=== PATIENT | female | born 1935 | race Caucasian/White ===

== ENCOUNTER 2021-02-16 12:28 | Observation (INO) ==
[2021-02-16] MEDS ORDERED: Acetaminophen 325 MG TABLET PO PRN (14:56)
[2021-02-16] MEDS ORDERED: Ondansetron 4 MG/2 ML VIAL IVP PRN (14:56)
[2021-02-16] MEDS ORDERED: Naloxone 0.4 MG/ML INJ IVP PRN (14:56)
[2021-02-16] MEDS ORDERED: *HR* HYDROcodone/Acet 5/325 mg TABLET PO PRN (14:59)
[2021-02-16] MEDS ORDERED: MOM Conc 10 ML UD.LIQ PO PRN (14:59)
[2021-02-16] MEDS ORDERED: 0.9 % Sodium Chloride 500 ML IVC ONE (15:20)
[2021-02-16 15:37] LABS: Hematocrit 38.3 % (35.3-44.9); Hemoglobin 12.5 g/dL (11.5-15.4); Mean Corpuscular HGB Conc 32.6 g/dL (31.6-35.5); Mean Corpuscular Hemoglobin 30.6 pg (28.0-33.3); Mean Corpuscular Volume 93.9 fL (83.0-100.0); Mean Platelet Volume 9.4 fL (9.4-12.4); Platelet Count 187 K/mcL (140-400); Red Blood Count 4.08 M/mcL (3.82-4.97); Red Cell Distribution Width 13.3 % (11.5-14.5); White Blood Count 7.7 K/mcL (4.3-11.1)
[2021-02-16] MEDS ORDERED: 0.9 % Sodium Chloride 500 ML ONE (15:46)
[2021-02-16 15:52] LABS: BUN/Creatinine Ratio 26 (6-26); Blood Urea Nitrogen 27 mg/dL (8-23); Calcium 8.5 mg/dL (8.6-10.3); Carbon Dioxide 27 mEq/L (23-29); Chloride 104 mEq/L (98-107); Glucose 95 mg/dL (70-105); Osmolality,Calculated 291 (280-300); Sodium 138 mEq/L (136-145); eGFR For African Americans > 60 (> 60); eGFR For Non-African Americans 52 (> 60)
[2021-02-16] MEDS: Carbidopa/Levodopa [Carbidopa-Levo Er 25-100 Tab] PO SCH ×2 (17:08→20:50)
[2021-02-16] MEDS: 0.9 % Sodium Chloride 1,000 ML IVC SCH (17:08)
[2021-02-16] MEDS: Gabapentin 100 MG CAPSULE PO SCH ×2 (17:08→20:49)
[2021-02-16] MEDS: Apixaban 5 MG TABLET PO SCH (20:49)
[2021-02-16] MEDS: QUEtiapine Fumarate 25 MG TABLET PO SCH (20:49)
[2021-02-16] MEDS: rOPINIRole 1 MG TABLET PO SCH (20:49)
[2021-02-17] MEDS: 0.9 % Sodium Chloride 1,000 ML IVC SCH ×2 (02:58→11:18)
[2021-02-17 06:09] LABS: Hematocrit 36.4 % (35.3-44.9); Hemoglobin 11.4 g/dL (11.5-15.4); Mean Corpuscular HGB Conc 31.3 g/dL (31.6-35.5); Mean Corpuscular Hemoglobin 30.2 pg (28.0-33.3); Mean Corpuscular Volume 96.3 fL (83.0-100.0); Mean Platelet Volume 9.9 fL (9.4-12.4); Platelet Count 177 K/mcL (140-400); Red Blood Count 3.78 M/mcL (3.82-4.97); Red Cell Distribution Width 13.5 % (11.5-14.5); White Blood Count 7.6 K/mcL (4.3-11.1)
[2021-02-17 06:39] LABS: BUN/Creatinine Ratio 25 (6-26); Blood Urea Nitrogen 24 mg/dL (8-23); Calcium 8.1 mg/dL (8.6-10.3); Carbon Dioxide 30 mEq/L (23-29); Chloride 108 mEq/L (98-107); Chol/HDL Ratio 4.6 (0-4.9); Cholesterol 165 mg/dL (< 200); Glucose 92 mg/dL (70-105); HDL Cholesterol 36 mg/dL (40-59); LDL Cholesterol,Calculated 96 mg/dL (< 100); Osmolality,Calculated 300 (280-300); Sodium 143 mEq/L (136-145); Triglycerides 165 mg/dL (< 150); eGFR For African Americans > 60 (> 60); eGFR For Non-African Americans 55 (> 60)
[2021-02-17] MEDS: rOPINIRole 1 MG TABLET PO SCH ×2 (08:07→20:38)
[2021-02-17] MEDS: Gabapentin 100 MG CAPSULE PO SCH ×3 (08:07→20:37)
[2021-02-17] MEDS: Apixaban 5 MG TABLET PO SCH ×2 (08:07→20:37)
[2021-02-17] MEDS: Aspirin Enteric Coated 81 MG Tablet PO SCH (08:07)
[2021-02-17] MEDS: RASAGILINE MESYLATE 1 MG PO SCH (08:08)
[2021-02-17] MEDS: Carbidopa/Levodopa [Carbidopa-Levo Er 25-100 Tab] PO SCH ×3 (08:08→20:38)
[2021-02-17] MEDS: QUEtiapine Fumarate 25 MG TABLET PO SCH (20:38)
[2021-02-18 06:52] LABS: Basophils % 0.3 %; Eosinophils # 0.1 K/mcL (0.0-0.6); Eosinophils % 1.4 %; Hematocrit 38.4 % (35.3-44.9); Hemoglobin 12.2 g/dL (11.5-15.4); Immature Granulocytes % 0.4 % (0-4); Lymphocytes % 14.7 %; Mean Corpuscular HGB Conc 31.8 g/dL (31.6-35.5); Mean Corpuscular Hemoglobin 30.8 pg (28.0-33.3); Mean Platelet Volume 9.6 fL (9.4-12.4); Monocytes # 0.5 K/mcL (0.0-1.3); Monocytes % 6.9 %; Neutrophils # 5.3 K/mcL (1.6-8.9); Platelet Count 163 K/mcL (140-400); Red Blood Count 3.96 M/mcL (3.82-4.97); Red Cell Distribution Width 13.7 % (11.5-14.5); Segmented Neutrophils % 76.3 %
[2021-02-18] MEDS: Gabapentin 100 MG CAPSULE PO SCH (07:53)
[2021-02-18] MEDS: rOPINIRole 1 MG TABLET PO SCH (07:53)
[2021-02-18] MEDS: Aspirin Enteric Coated 81 MG Tablet PO SCH (07:54)
[2021-02-18] MEDS: Apixaban 5 MG TABLET PO SCH (07:54)
[2021-02-18] MEDS: RASAGILINE MESYLATE 1 MG PO SCH (07:54)
[2021-02-18] MEDS: Carbidopa/Levodopa [Carbidopa-Levo Er 25-100 Tab] PO SCH ×2 (07:54→11:52)
[2021-02-18 07:55] LABS: Bilirubin,Urine Negative (Negative); Blood,Urine Negative (Negative); Clarity,Urine Clear (Clear); Color,Urine Yellow (Yellow); Glucose,Urine (UA) Normal (Normal); Ketones,Urine Negative (Negative); Leukocyte Esterase,Urine Small (Negative); Nitrite,Urine Negative (Negative); Protein,Urine Negative (Neg-Trace); Specific Gravity,Urine 1.025 (1.010-1.025); Urobilinogen,Urine Normal (Normal)
[2021-02-18 08:07] LABS: Bacteria,Urine Few per hpf (None-Few); WBC,Urine 15-30 per hpf (0-3)
[2021-02-18 08:15] LABS: BUN/Creatinine Ratio 25 (6-26); Blood Urea Nitrogen 19 mg/dL (8-23); Calcium 8.2 mg/dL (8.6-10.3); Carbon Dioxide 25 mEq/L (23-29); Chloride 110 mEq/L (98-107); Glucose 106 mg/dL (70-105); Osmolality,Calculated 297 (280-300); Sodium 142 mEq/L (136-145); eGFR For African Americans > 60 (> 60); eGFR For Non-African Americans > 60 (> 60)
[2021-02-18 11:35] VITALS: BP 133/76; PULSE 109; RESP 16; TEMP 98.6; O2SAT 93
== END 2021-02-18 13:30 ==
LOC: INPGRE
PROVIDERS: ADMIT Family Medicine; ATTEND Family Medicine